=== PATIENT | male | born 1980 | race Caucasian/White ===

== ENCOUNTER 2024-04-24 22:30 | Emergency (ER) | payer OTHER, SELFPAY ==
[2024-04-24 22:34] VITALS: BP 133/94
[2024-04-25 00:02] VITALS: BMI 28.7
--- NOTE | 2024-04-25 00:14 | ED.GENMED ---
History of Present Illness
General
Chief Complaint: Chest Pain
Source: patient
Exam Limitations: none
Time Seen by Provider: 04/24/24 23:53
History of Present Illness
History of Present Illness:
This is a 43 year old male that comes in with multiple complaints. States that he has some chest tightness and it sometimes goes up into his throat. States that he has a headache and some abd pain. States that this has been going on for the past 3
weeks. States that he gets cramping in his stomach and he had the norovirus before New Years. States that he went to the PCP last week and his blood work shows that his liver enzymes were elevated States that he was to get an US next week. States
that he has abd pain, nausea, headache across the forehead and lightheadedness. Denies any fever, chills, chest pain, SOB, vomiting, diarrhea, urinary burning.
Past History
Past History
ED Past Medical History: None; Negative Asthma, HTN, Hypercholesterolemia or NIDDM
ED Past Surgical History: None
Social History
Tobacco: Non-smoker
Alcohol: Occasional
Personal:
Living: with family
Review of Systems
Review of Systems
All Other Systems: ROS reviewed and negative except as documented in HPI and ROS
Constitutional: Reports no symptoms; Denies fever or chills
EENT: Reports no symptoms
Respiratory: Reports no symptoms; Denies cough or trouble breathing
Cardiac: Reports chest pain
ABD/GI: Reports abdominal pain and nausea; Denies vomiting or diarrhea
: Reports no symptoms; Denies dysuria, frequency or urgency
Musculoskeletal: Reports no symptoms
Skin: Reports no symptoms
Neurological: Reports headache and other (Lighteaded)
Psychiatric: Reports no symptoms
Phy Exam
General Physical Exam
General Presentation: well appearing and no apparent distress
General age: appears stated age
General Skin: warm and dry
General Habitus: normal
General Mental: alert
General Hydration: appears well hydrated
ENT Exam
ENT Exam: TM's normal, pharynx normal and neck supple
Eye Exam
Eye Exam: EOMI
Cardiovascular Exam
Cardiovascular Exam: no edema, no murmur, normal peripheral pulses and bradycardia
Pulmonary Exam
Pulmonary Exam: lungs clear, no respiratory distress, no rales, chest non tender, no crackles, no rhonchi, no wheezing and no cough
Gastrointestinal Exam
Gastrointestinal Exam: normal bowel sounds, soft, no organomegaly, no pulsatile mass, non distended and tender (Epigastric and right sided abd tenderness with palpation)
Musculoskeletal Exam
Musculoskeletal Exam: full ROM and no edema
Skin Exam
Skin Exam: normal color, warm/dry, no rash and no petechia
Psychiatric Exam
Psychiatric Exam: normal mood/affect
Scores
Heart Score for Chest Pain Patients
STEMI patient?: No
History: Slightly or Non-Suspicious
ECG: Normal
Age: </= 45 years
Risk Factors: No Risk Factors
Troponin: </= Normal Limit
Heart Score for Chest Pain Patients: 0
Heart Score Risk: 2.5% MACE over next 6 weeks
Course
Orders/Labs/Results
Orders:
Orders
04/24/24 22:33
EKG [Electrocardiogram (*1)] Urgent
Reason for Study: Chest Pain
04/24/24 22:34
EKG- Treatment ONCE
Complete Blood Count/With Diff Urgent
Comprehensive Metabolic Panel Urgent
Troponin I Urgent
04/25/24 00:13
CR Chest - 2 Views Urgent
Comment:
Reason For Exam: Chest pain
US Abdomen Complete/Upper Urgent
Comment:
Reason For Exam: Upper abd pain
04/25/24 00:14
Metoclopramide [Reglan] 10 mg IV NOW STA
Pantoprazole [Protonix IV] 40 mg IV NOW STA
04/25/24 01:48
Sucralfate [Carafate] 1 gram .ROUTE .STK-MED ONE
Abnormal Lab Results
04/25/24
00:18
MCV 79.3 L fL
(80.0-94.0)
MCH 26.0 L pg
(27.0-31.0)
MCHC 32.8 L g/dL
(33.0-37.0)
Absolute Monos (auto) 0.7 H 10^3/uL
(0.1-0.6)
04/25/24 00:18
04/25/24 00:18
Labs unremarkable. Troponin <0.012
Vital Signs
Initial and Last Documented VS:
Initial Vital Signs
Temp Pulse Resp BP Pulse Ox
97.7 F 60 17 133/94 100
04/24/24 22:34 04/24/24 22:34 04/24/24 22:34 04/24/24 22:34 04/24/24 22:34
Last Documented Vital Signs
Temp Pulse Resp BP Pulse Ox
97.7 F 45 13 133/94 99
04/24/24 22:34 04/25/24 00:00 04/25/24 00:00 04/24/24 22:34 04/25/24 00:00
MDM/Problems Addressed
Differential Diagnosis Includes:
GERD, Gallbladder disease,
MDM/Problems Addressed:
This is a 43 year old male that comes in with c/o chest tightness States that he has abd pain and a headache. States that this has been going on for 3 weeks. Patient went to see the PCP and his liver enzymes were elevated. States that he is
nauseated and that the pain sometimes goes up to his throat.
Will check labs. US and given Protonix.
Back into see patient. States that he is feeling better after the Carafate. Explained that this may all be reflux. You have had 2 prescriptions sent to your Pharmacy. Please also try to cut down on any caffiene as this is very irritating to the
stomach lining. If you have any other concerns please return to the emergency room.
Chronic conditions affecting care:
NA
Acute Exacerbation and/or Progression of Chronic Illness:
NA
*Radiology
Radiology exam reviewed: preliminary read by ED provider (Chest=Negative for active disease) and radiology read reviewed (US night hawk- NO sonographic evidence of cholelithiasis or acute cholecystitis. Common bile duct measures 4mm. Unremarkable
sonographic appearance of the liver, Bilateral kidneys, spleen and visualized pancreas. )
*Pulse Oximetry
Patient hypoxic: no
*EKG
Interpreted by ED Provider?: Yes
Heart Rate: 50
Rate: bradycardiac
Rhythm: sinus
[place]: normal axis
Interval: normal interval
QRS Pattern: normal QRS
Ischemia: no ischemia
*Fl[employer]ing [employer]or Interpretation
Rate: bradycardiac
Heart Rate: 52
Rhythm: sinus
*Critical Care Note
Total Time (30-74mins, 75-104mins- exclusive of procedures): Not Applicable
ED Attending Note
-
Portions of this chart may have been created with voice recognition software.� Occasional wrong word or��sound alike� substitutions may have occurred due to the inherent limitations of voice recognition software.
Discharge Plan
Departure
Patient Disposition: Home (Routine Discharge)
Date of Disposition: 04/25/24
Time of Disposition: 02:11
Patient with high blood pressure during this ER visit?: Yes
Condition: Good
Covid-19: Not Applicable
Discharge Problem:
Chest pain due to GERD
Instructions: Acid Reflux and GERD in Adults (DC), Chest Pain PCP Follow Up, BLOOD PRESSURE
Prescriptions:
New
pantoprazole [Protonix] 40 mg tablet,delayed release (DR/EC)
40 mg PO DAILY Qty: 30 0RF
sucralfate [Carafate] 1 gram tablet
1 g PO ACHS Qty: 40 0RF
Referrals:
Rahul Welch MD [Primary Care Provider] - Call in 1-3 days for appt
Suzi Laird CRNP [Family Provider] -
Activity Restrictions/Additional Instructions:
As discussed, your blood work is all normal along with your Ultrasound. Chest x-ray is normal. This may all be due to Reflux. YOu have had 2 prescriptions sent to your pharmacy. The Protonix is once daily and the Carafate is 30min-1 hour before
meals and again at bedtime. Please take the table and dissolve this in 2 tsp of water and drink. Follow up with the family doctor for recheck. IF YOU HAVE INCREASED OR CHANGING PAIN, OR YOU HAVE ANY OTHER CONCERNS PLEASE RETURN TO THE EMERGENCY
ROOM.
Interventions
Interventions:
*Risk Screen - Suicide Last Done: 04/24/24 22:36
*General Assessment Last Done: 04/24/24 22:36
*Neglect/Abuse Screening Last Done: 04/24/24 22:36
*ED COVID-19 Vaccine History Last Done: 04/24/24 22:36
Discharge Date and Time
Print Language: [place]ET[place]ESE
[2024-04-25 00:43] LABS: % Basophils 0.6 % (0-2); % Eosinophils 1.7 % (0-6); % Immature Granulocytes 0.3 % (0-0.5); % Lymphocytes 27.9 % (20.5-51.1); % Monocytes 8.4 % (1.7-9.3); % Neutrophils 61.1 % (42.2-75.2); Absolute Basophils 0.1 10^3/uL (0-0.2); Absolute Eosinophils 0.2 10^3/uL (0-0.7); Absolute Lymphocytes 2.4 10^3/uL (1.2-3.4); Absolute Monocytes 0.7 10^3/uL (0.1-0.6); Absolute Neutrophils 5.2 10^3/uL (1.4-6.5); Hematocrit 42.4 % (39.0-52.0); Hemoglobin 13.9 g/dL (13.0-18.0); Mean Corp Hgb Conc. 32.8 g/dL (33.0-37.0); Mean Corpuscular Volume 79.3 fL (80.0-94.0); Mean Platelet Volume 9.6 fL (7.4-10.4); Nucleated Red Blood Cells % 0 % (-); Platelet Count 254 10^3/uL (130-400); Red Blood Cell Count 5.35 10^6/uL (4.70-6.10); Red Cell Dist. Width 13.4 % (11.5-14.5); White Blood Cell Count 8.6 10^3/uL (4.8-10.8)
[2024-04-25 00:52] LABS: ALT (SGPT) 45 U/L (0-50); AST (SGOT) 25 U/L (17-59); Albumin 4.1 g/dl (3.5-5.0); Alkaline Phosphatase 56 U/L (38-126); Blood Urea Nitrogen 18 mg/dl (9-20); Calcium 9.3 mg/dl (8.4-10.2); Carbon Dioxide 30 mmol/L (22-30); Chloride 99 mmol/L (98-107); Estimated Creatinine Clearance 107 ml/min; Glucose 94 mg/dl (70-99); Potassium 4.2 mmol/L (3.5-5.1); Sodium 136 mmol/L (135-145); Total Bilirubin 0.5 mg/dl (0.2-1.3); Total Protein 6.8 g/dl (6.3-8.2); eGFR > 60.00
[2024-04-25] MEDS: PROTONIX IV 40 MG IV (00:58)
[2024-04-25] MEDS: REGLAN 10 MG IV (00:59)
[2024-04-25 01:02] VITALS: BP 119/67
[2024-04-25 01:45] VITALS: BP 115/71
[2024-04-25 01:56] LABS: Troponin I < 0.012 ng/ml
[2024-04-25 02:00] VITALS: BP 116/68
--- NOTE | 2024-04-25 02:11 | DOWNTIME ---
There was a [employer] Downtime on 04/25/2024 from 0100 to 04/25/2024 at 0205 . Downtime documentation of patient's care, including medication administrations, has been reconciled in the electronic record per guidelines. Refer to the
patient's paper chart under the miscellaneous tab to see printed paper medication records and downtime forms.
== END 2024-04-25 02:28 | disposition home or self-care (01) ==
LOC: EMR 22:30
PROVIDERS: EMERGENCY PHYSICIAN Student in an Organized Health Care Education/Training Program; FAMILY PHYSICIAN Nurse Practitioner; PRIMARYCARE PHYSICIAN Internal Medicine
DX: R07.9 Chest pain, unspecified (principal); K21.9 Gastro-esophageal reflux disease without esophagitis
CPT/HCPCS: 96374; 96375; 99285; 71046; 76700; 80053; 84484; 85025; 93005

== ENCOUNTER 2024-05-01 23:44 | Emergency (ER) | payer OTHER, SELFPAY ==
[2024-05-01 23:56] VITALS: BP 140/75
[2024-05-02 00:11] LABS: % Basophils 0.5 % (0-2); % Eosinophils 2.6 % (0-6); % Immature Granulocytes 0.3 % (0-0.5); % Lymphocytes 36.2 % (20.5-51.1); % Monocytes 7.2 % (1.7-9.3); % Neutrophils 53.2 % (42.2-75.2); Absolute Eosinophils 0.2 10^3/uL (0-0.7); Absolute Lymphocytes 2.8 10^3/uL (1.2-3.4); Absolute Monocytes 0.6 10^3/uL (0.1-0.6); Hematocrit 41.9 % (39.0-52.0); Hemoglobin 13.9 g/dL (13.0-18.0); Mean Corp Hgb Conc. 33.2 g/dL (33.0-37.0); Mean Corpuscular Hgb 26.2 pg (27.0-31.0); Mean Corpuscular Volume 79.1 fL (80.0-94.0); Mean Platelet Volume 9.8 fL (7.4-10.4); Nucleated Red Blood Cells % 0 % (-); Platelet Count 214 10^3/uL (130-400); Red Cell Dist. Width 13.3 % (11.5-14.5); White Blood Cell Count 7.6 10^3/uL (4.8-10.8)
[2024-05-02 00:35] LABS: Troponin I < 0.012 ng/ml
[2024-05-02 00:36] LABS: ALT (SGPT) 38 U/L (0-50); AST (SGOT) 29 U/L (17-59); Albumin 4.7 g/dl (3.5-5.0); Alkaline Phosphatase 66 U/L (38-126); Blood Urea Nitrogen 18 mg/dl (9-20); Calcium 9.9 mg/dl (8.4-10.2); Carbon Dioxide 25 mmol/L (22-30); Chloride 100 mmol/L (98-107); Glucose 98 mg/dl (70-99); Lipase 227 U/L (23-300); Potassium 3.6 mmol/L (3.5-5.1); Sodium 136 mmol/L (135-145); Total Bilirubin 0.3 mg/dl (0.2-1.3); Total Protein 7.2 g/dl (6.3-8.2); eGFR > 60.00
[2024-05-02] MEDS: PEPCID 40 MG PO (02:05)
[2024-05-02] MEDS: MAALOX 50 PO (02:05)
--- NOTE | 2024-05-02 02:22 | ED.GENMED ---
History of Present Illness
General
Chief Complaint: Abdominal Symptoms
Time Seen by Provider: 05/02/24 02:00
History of Present Illness
History of Present Illness:
43-year-old male with history of reflux presenting to the emergency department chest pain. Patient states that he was here few days ago for the same. Was diagnosed with reflux and states that this is similar. He states he was having epigastric
abdominal pain that radiated to his chest and into the back of his throat. He did try taking Carafate and Protonix at home which did not relieve the symptom so he came in for further evaluation. He does state that most of his symptoms have
resolved however he still having some discomfort as well as some abdominal cramping. He does state that sometimes the pain occurs right after eating however other times it takes an hour for the symptoms to appear. He did schedule a GI appointment
but that is not till July. No leg swelling hemoptysis shortness of breath. No nausea or vomiting. No family history of cardiac disease.
Past History
Past History
ED Past Medical History: None; Negative Asthma, HTN, Hypercholesterolemia or NIDDM
ED Past Surgical History: None
Social History
Tobacco: Non-smoker
Alcohol: Occasional
Personal:
Living: with family
Phy Exam
Physical Exam
Physical Exam:
GENERAL: in no acute distress
HEENT: normocephalic, extraocular movements intact, moist oral mucosa
NECK: normal inspection
RESPIRATORY: no respiratory distress, clear to auscultation bilaterally
CARDIOVASCULAR: regular rate and rhythm
ABDOMEN/: soft, non-distended, non-tender to palpation, no rebound or guarding
EXTREMITIES: non-tender, no edema/swelling
NEUROLOGIC: awake and alert, moves all extremities
SKIN: warm
Course
Orders/Labs/Results
Orders:
Orders
05/01/24 23:48
ECG [Electrocardiogram (*1)] Urgent
Reason for Study: Chest Pain
EKG- Treatment ONCE
05/01/24 23:59
Complete Blood Count/With Diff Urgent
Comprehensive Metabolic Panel Urgent
Lipase Urgent
Troponin I Urgent
05/02/24 02:00
Famotidine [Pepcid] 40 mg PO NOW STA
Mag Hydrox/Al Hydrox/Simeth [Maalox] 30 ml Phenobarb/Hyoscy/Atropine/Scop [] 10 ml Viscous Lidocaine 2% [Xylocaine Viscous Cup] 10 ml PO NOW
05/02/24 02:03
Mag Hydrox/Al Hydrox/Simeth [Maalox] 30 ml .ROUTE .STK-MED ONE
Phenobarb/Hyoscy/Atropine/Scop [] 10 ml .ROUTE .STK-MED ONE
Viscous Lidocaine 2% [Xylocaine Viscous Cup] 15 ml .ROUTE .STK-MED ONE
Abnormal Lab Results
05/02/24
00:04
MCV 79.1 L fL
(80.0-94.0)
MCH 26.2 L pg
(27.0-31.0)
05/02/24 00:04
05/02/24 00:04
Vital Signs
Initial and Last Documented VS:
Initial Vital Signs
Temp Pulse Resp BP Pulse Ox
97.8 F 50 18 140/75 100
05/01/24 23:56 05/01/24 23:56 05/01/24 23:56 05/01/24 23:56 05/01/24 23:56
Last Documented Vital Signs
Temp Pulse Resp BP Pulse Ox
97.8 F 50 18 115/79 98
05/01/24 23:56 05/02/24 02:23 05/02/24 02:23 05/02/24 02:23 05/02/24 02:23
MDM/Problems Addressed
Differential Diagnosis Includes:
Patient is a 43-year-old man presenting to the emergency department epigastric Axel pain chest pain that radiates to his throat. Vitals unremarkable and exam is reassuring. Differential consists of reflux versus fascial spasm versus ulcer
versus atypical ACS though less likely. Blood work obtained prior to my evaluation is unremarkable. EKG per my interpretation normal sinus rhythm. Will trial GI cocktail. Did discuss with patient about diet as well as starting Pepcid in addition
to the Protonix.
*Critical Care Note
Total Time (30-74mins, 75-104mins- exclusive of procedures): Not Applicable
Update Note
Update Note:
On reevaluation symptoms have improved. Will discharge at this time with primary care follow-up as well as additional prescription for Pepcid as well as Carafate
ED Attending Note
-
Portions of this chart may have been created with voice recognition software.� Occasional wrong word or��sound alike� substitutions may have occurred due to the inherent limitations of voice recognition software.
Discharge Plan
Departure
Patient Disposition: Home (Routine Discharge)
Date of Disposition: 05/02/24
Time of Disposition: 02:46
Patient with high blood pressure during this ER visit?: No
Discharge Problem:
Acid reflux
Instructions: Acid reflux and GERD in adults
Prescriptions:
New
famotidine [Pepcid] 40 mg tablet
40 mg PO HS Qty: 30 0RF
sucralfate [Carafate] 100 mg/mL suspension
10 ml PO AC Qty: 420 0RF
No Action
pantoprazole [Protonix] 40 mg tablet,delayed release (DR/EC)
40 mg PO DAILY Qty: 30 0RF
sucralfate [Carafate] 1 gram tablet
1 g PO ACHS Qty: 40 0RF
Referrals:
Suzi Laird CRNP [Family Provider] -
Activity Restrictions/Additional Instructions:
You were evaluated in the Emergency Department today for chest and abdominal pain, which is most likely due to irritation of the lining of your stomach. Your symptoms improved with medication in the ED. You can take Mylanta, which is available over
the counter, to help manage your symptoms. Avoid spicy or acidic foods. I did represcribe you Carafate as well as started you on Pepcid.
Please follow up with your primary care physician within two days.
Return to the Emergency Department if you experience shortness of breath, worsening or uncontrolled abdominal or chest pain, headache, light headedness, feeling faint, nausea, vomiting, bloody vomit or stools, black tarry stools, or any other
concerning symptoms.
Thank you for choosing us for your care.
Interventions
Interventions:
*Risk Screen - Suicide Last Done: 05/01/24 23:56
*General Assessment Last Done: 05/02/24 02:30
*Neglect/Abuse Screening Last Done: 05/01/24 23:56
ED- Fall Risk Assessment Last Done: 05/02/24 02:25
HT-Qtoexe-Nognzaceye Assessment Last Done: 05/02/24 02:30
Discharge Date and Time
Print Language: TELUG[place]
[2024-05-02 02:23] VITALS: BP 115/79
== END 2024-05-02 03:39 | disposition home or self-care (01) ==
LOC: EMR 23:44
PROVIDERS: Student in an Organized Health Care Education/Training Program; EMERGENCY PHYSICIAN Student in an Organized Health Care Education/Training Program; FAMILY PHYSICIAN Nurse Practitioner
DX: K21.9 Gastro-esophageal reflux disease without esophagitis (principal)
CPT/HCPCS: 99283; 80053; 83690; 84484; 85025; 93005